=== PATIENT | female | born 1990 | race Caucasian/White ===

== ENCOUNTER 2018-03-08 16:02 | Emergency (ER) | payer MEDICAID, OTHER ==
[~2018-03-08] VITALS: Ht 157.5 cm; Wt 52.8 kg
[~2018-03-08 16:02] MED LIST: CARB400T PO; CARBAMAZEPINE PO; RISP2TAB PO; UNKNOWN MED
[2018-03-08 16:15] VITALS: BP 150/90
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
[2018-03-08] MEDS ORDERED: LACTULOSE 20 GM/30 ML UDC PO ONE (17:20)
[2018-03-08] MEDS ORDERED: SODIUM PHOSPHATE 118 ML ENEM RC ONE (17:20)
--- NOTE | 2018-03-08 17:50 | NUR ---
ENEMA ADMINISTERED; PT TOLERATED WELL.
[2018-03-08 18:44] VITALS: BP 144/82
--- NOTE | 2018-03-08 18:46 | NUR ---
Patient discharged with v/s stable. Written and verbal after care instructions given and explained. Patient alert, oriented and verbalized understanding of instructions. Ambulatory with steady gait. All questions addressed prior to discharge. ID band removed. Patient advised to follow up with PMD. Rx of LACTULOSE given. Patient educated on indication of medication including possible reaction and side effects. Opportunity to ask questions provided and answered.
== END 2018-03-08 18:45 | disposition home or self-care (01) ==
LOC: MED 16:02
DX: K59.00 Constipation, unspecified (principal); F25.9 Schizoaffective disorder, unspecified; J45.909 Unspecified asthma, uncomplicated; Z88.6 Allergy status to analgesic agent; Z79.899 Other long term (current) drug therapy
CPT/HCPCS: 99283

== ENCOUNTER 2018-05-10 15:40 | Emergency (ER) | payer MEDICAID ==
[~2018-05-10] VITALS: Ht 157.5 cm; Wt 63.5 kg
--- NOTE | 2018-05-10 15:40 | NUR ---
PT KEY BLS TO ER BED 07
[2018-05-10 15:58] VITALS: BP 139/79
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
--- NOTE | 2018-05-10 18:31 | NUR ---
FARHANA VILLEDA AT BEDSIDE.
--- NOTE | 2018-05-10 18:38 | NUR ---
PATIENT TAKEN TO XRAY IN [facility]
[2018-05-10] MEDS ORDERED: ACETAMINOPHEN EXTRA STRENGTH 500 MG TAB PO ONE (19:35)
[2018-05-10 20:15] VITALS: BP 139/79
== END 2018-05-10 20:15 | disposition home or self-care (01) ==
LOC: MED 15:40
DX: R07.89 Other chest pain (principal); Z88.8 Allergy status to other drugs, medicaments and biological substances
CPT/HCPCS: 71046; 99283

== ENCOUNTER 2021-02-19 15:52 | Emergency (ER) | payer MEDICAID ==
[~2021-02-19] VITALS: Ht 144.8 cm; Wt 65.8 kg
[2021-02-19 16:00] VITALS: BP 141/97
--- NOTE | 2021-02-19 16:09 | NUR ---
PT W/C ASSISTED TO BED 2.
[2021-02-19 17:00] LABS: APPEARANCE,URINE CLEAR (CLEAR); BILIRUBIN,URINE NEGATIVE (NEGATIVE); BLOOD, URINE 1+ (NEGATIVE); COLOR,URINE YELLOW (YELLOW); LEUKOCYTE ESTERASE ,URINE NEGATIVE (NEGATIVE); NITRITE, URINE NEGATIVE (NEGATIVE); UGLUCOSE NEGATIVE (NEGATIVE)
[2021-02-19 18:04] LABS: WBC,URINE NONE SEEN /HPF (0-5)
[2021-02-19] MEDS ORDERED: NITR100C7 PO (18:21)
[2021-02-19 18:30] VITALS: BP 130/70
--- NOTE | 2021-02-19 18:33 | NUR ---
PATIENT CONDITION STABLE D/C HOME WITH COMPUTER REPAIR TECHNICIAN AFTER CARE REVIEWED UNDERSTOOD.
== END 2021-02-19 18:30 | disposition home or self-care (01) ==
LOC: MED 15:52
DX: N39.0 Urinary tract infection, site not specified (principal); R11.10 Vomiting, unspecified; J45.909 Unspecified asthma, uncomplicated; Z88.8 Allergy status to other drugs, medicaments and biological substances; Z79.899 Other long term (current) drug therapy
CPT/HCPCS: 81001; 81025; 99283

== ENCOUNTER 2021-08-20 18:59 | Observation (INO) | payer MEDICAID ==
[~2021-08-20] VITALS: Ht 147.3 cm
[~2021-08-20 18:59] MED LIST changes: +NITR100C7 PO
[2021-08-20 20:11] VITALS: BP 133/86
[2021-08-20] MEDS ORDERED: GLUCAGON 1 MG VIAL IVP ONE ×2 (21:20→22:20)
[2021-08-20 22:10] VITALS: BP 133/86
[2021-08-20] MEDS ORDERED: ONDANSETRON 4 MG/2 ML VIAL IVP ONE (22:30)
[2021-08-20] MEDS ORDERED: NACL 0.9% 500 ML IV ONE (22:30)
[2021-08-20] MEDS ORDERED: DICYCLOMINE HCL LIQUID 20 MG, ALUMINUM HYD/MAG/SIMETHICONE 30 ML, LIDOCAINE VISCOUS 2% ... PO ONE ×3 (22:30)
[2021-08-20] MEDS ORDERED: MAG355OR2 PO (22:32)
[2021-08-20] MEDS ORDERED: ONDA-188 PO (22:32)
[2021-08-20] MEDS ORDERED: DICYCLOMINE HCL LIQUID 10 MG/5 ML UDC ONE (22:42)
[2021-08-20] MEDS ORDERED: ALUMINUM HYD/MAG/SIMETHICONE 30 ML UDC ONE (22:42)
[2021-08-20] MEDS ORDERED: MORPHINE SULFATE 2 MG/ML SYR IVP PRN (23:45)
[2021-08-20] MEDS ORDERED: ONDANSETRON 4 MG/2 ML VIAL IVP PRN (23:45)
[2021-08-20] MEDS ORDERED: NACL 0.9% 1,000 ML IV SCH (23:45)
[2021-08-21] MEDS ORDERED: MORPHINE SULFATE 2 MG/ML SYR IVP PRN (02:10)
[2021-08-21] MEDS ORDERED: ONDANSETRON 4 MG/2 ML VIAL IVP PRN (02:10)
[2021-08-21] MEDS ORDERED: LORazepam 2 MG/ML VIAL IVP PRN (02:10)
[2021-08-21] MEDS ORDERED: LORazepam 2 MG/ML VIAL IM ONE (02:50)
[2021-08-21] MEDS ORDERED: COG1 PO (03:19)
[2021-08-21] MEDS ORDERED: LORA-476 PO (03:26)
[2021-08-21] MEDS ORDERED: TRAZ-343 PO (03:33)
[2021-08-21] MEDS ORDERED: HAL5 PO (03:37)
[2021-08-21] MEDS ORDERED: DIVA250T PO (03:47)
[2021-08-21] MEDS ORDERED: DIVA250E1 PO (03:47)
[2021-08-21] MEDS ORDERED: CARB100T PO (03:57)
[2021-08-21] MEDS ORDERED: RISP0.5T3 PO (03:57)
[2021-08-21] MEDS ORDERED: CARB100C85 PO (03:57)
[2021-08-21] MEDS ORDERED: CARB400T7 PO (03:57)
[2021-08-21] MEDS ORDERED: BUS5 PO (03:57)
[2021-08-21] MEDS ORDERED: [UNRECOGNIZED DRUG - CODE] MC (03:57)
[2021-08-21] MEDS ORDERED: OMEP40EC23 PO ×2 (04:04→14:57)
[2021-08-21] MEDS: NACL 0.9% 1,000 ML IV SCH ×2 (05:48→12:20)
[2021-08-21 07:00] VITALS: BP 110/76
[2021-08-21 09:00] LABS: BASOPHILS % (AUTO) 0.6 % (0.0-2.0); EOSINOPHILS # (AUTO) 0.2 K/uL (0-0.4); EOSINOPHILS % (AUTO) 3.1 % (0.0-4.0); HEMATOCRIT 35.4 % (36-48); HEMOGLOBIN 11.9 g/dL (12.0-16.0); LYMPHOCYTES # (AUTO) 2.1 K/uL (2.5-16.5); LYMPHOCYTES % (AUTO) 31.9 % (20.5-51.1); MEAN CORPUSCULAR HEMOGLOBIN 31 pg (27-31); MEAN CORPUSCULAR HGB CONC 34 g/dL (33-37); MEAN CORPUSCULAR VOLUME 90.9 fL (80-94); MONOCYTES % (AUTO) 15.4 % (1.7-9.3); NEUTROPHILS # (AUTO) 3.2 K/uL (1.8-7.7); PLATELET COUNT (AUTO) 312 K/uL (140-450); RED BLOOD CELL COUNT(AUTO) 3.89 MIL/uL (4.20-5.40); RED CELL DISTRIBUTION WIDTH 13.4 % (11.6-13.7); WHITE BLOOD COUNT (AUTO) 6.6 K/uL (4.8-10.8)
[2021-08-21] MEDS ORDERED: ENOXAPARIN 40 MG/0.4 ML SYR SUBQ SCH ×2 (09:00)
[2021-08-21] MEDS ORDERED: PANTOPRAZOLE 40 MG INJ VIAL IVP SCH ×3 (09:00→21:00)
[2021-08-21 09:20] LABS: ALBUMIN 3.8 g/dL (3.4-5.0); ANION GAP 11.4 (8-16); CARBON DIOXIDE 27.3 mmol/L (21-32); CREATININE 0.7 mg/dL (0.6-1.3); POTASSIUM 3.7 mmol/L (3.5-5.1); TOTAL BILIRUBIN 0.3 mg/dL (0.0-1.0)
[2021-08-21] MEDS ORDERED: fentaNYL citrate 0.05 MG/ML VIAL ONE (13:21)
[2021-08-21] MEDS ORDERED: MIDAZOLAM 2 MG/2 ML VIAL ONE ×2 (13:22)
[2021-08-21] MEDS: MIDAZOLAM 2 MG/2 ML VIAL IVP ONE ×2 (13:55→15:00)
[2021-08-21] MEDS: fentaNYL citrate 0.05 MG/ML VIAL IVP ONE ×2 (13:56→15:00)
[2021-08-21] MEDS: diphenhydrAMINE 50 MG/ML VIAL IVP ONE ×2 (13:57→15:00)
[2021-08-21] MEDS: MAGNESIUM CITRATE 300 ML BTL PO ONE ×2 (14:15→14:59)
[2021-08-21] MEDS ORDERED: diphenhydrAMINE 50 MG/ML VIAL ONE (14:42)
[2021-08-21] MEDS ORDERED: SUCR1SUS7 PO (14:57)
[2021-08-21 15:02] VITALS: BP 110/76
[2021-08-21] MEDS ORDERED: LACT10SO40 PO (15:09)
== END 2021-08-21 15:40 | disposition home or self-care (01) ==
LOC: MED 18:59 → UNDOADMIN 23:52 → MMU 23:52 → INTOOBSV 08-21 02:10 → MMU 08-21 02:10
PROVIDERS: ADMIT Hospitalist; ATTEND Hospitalist
DX: T18.128A Food in esophagus causing other injury, initial encounter (principal); Z20.822 Contact with and (suspected) exposure to COVID-19; K21.9 Gastro-esophageal reflux disease without esophagitis; K22.10 Ulcer of esophagus without bleeding; G80.9 Cerebral palsy, unspecified; J45.909 Unspecified asthma, uncomplicated; Z79.899 Other long term (current) drug therapy
CPT/HCPCS: 36415; 43247; 70360; 71045; 80053; 85025; 87081; 87426; 96372; 96374; 96375; 99284; C9113; G0378; J1200; J1610; J1650; J2060; J2250; J2405; J3010; J7030